=== PATIENT | female | born 1960 | race Caucasian/White ===

== ENCOUNTER → 2024-12-01 12:58 | Outpatient (REF) | payer OTHER, SELFPAY | LOC: WDC 12:58 | PROVIDERS: ATTENDING PHYSICIAN Family Medicine | DX: Z12.31 Encounter for screening mammogram for malignant neoplasm of breast (principal) | CPT/HCPCS: 77063; 77067 ==

== ENCOUNTER → 2025-03-04 15:08 | Outpatient (REF) | payer OTHER, SELFPAY | LOC: RAD 15:08 | PROVIDERS: ATTENDING PHYSICIAN Family Medicine | DX: M25.552 Pain in left hip (principal); M16.12 Unilateral primary osteoarthritis, left hip | CPT/HCPCS: 73502 ==

== ENCOUNTER 2025-03-10 06:15 | Day surgery (SDC) | payer OTHER, SELFPAY | END 2025-03-10 10:30 | disposition home or self-care (01) | LOC: GI 06:15 | PROVIDERS: ATTENDING PHYSICIAN Surgery | DX: Z12.11 Encounter for screening for malignant neoplasm of colon (principal); R19.5 Other fecal abnormalities; K64.9 Unspecified hemorrhoids; K62.1 Rectal polyp | CPT/HCPCS: 45380; 88305 ==

== ENCOUNTER 2025-05-12 09:08 | Outpatient (RCR) | payer OTHER, SELFPAY | END 2025-05-12 23:59 | disposition home or self-care (01) | LOC: RPT 09:08 | PROVIDERS: ATTENDING PHYSICIAN Family Medicine | DX: M54.50 Low back pain, unspecified (principal); Z73.6 Limitation of activities due to disability | CPT/HCPCS: 97110; 97162; 97530 ==

== ENCOUNTER 2025-06-02 06:44 | Outpatient (RCR) | payer OTHER, SELFPAY | END 2025-06-02 23:59 | disposition home or self-care (01) | LOC: RPT 06:44 | PROVIDERS: ATTENDING PHYSICIAN Family Medicine | DX: M54.50 Low back pain, unspecified (principal); Z73.6 Limitation of activities due to disability; G89.29 Other chronic pain | CPT/HCPCS: 97110; 97112; 97530 ==

== ENCOUNTER → 2025-06-09 09:18 | Outpatient (REF) | payer OTHER, SELFPAY | LOC: PAVMRI 09:18 | PROVIDERS: ATTENDING PHYSICIAN Family Medicine | DX: M54.16 Radiculopathy, lumbar region (principal) | CPT/HCPCS: 72148 ==